=== PATIENT | female | born 1985 ===

== ENCOUNTER → 2022-05-09 | Outpatient (REF) | payer SELFPAY ==
[2022-05-09 18:18] LABS: HEMATOCRIT 46.5 % (36.0-47.0)
[2022-05-09 18:33] LABS: FERRITIN 194 NG/ML (8-252); IRON (FE) 68 UG/DL (50-170); PERCENT SATURATION 24.9 % (13.2-45.0); PHOSPHORUS LEVEL 2.8 MG/DL (2.5-4.9); TOTAL IRON BINDING CAPACITY 273 UG/DL (250-450)
[2022-05-09 19:23] LABS: VITAMIN B12 LEVEL > 2000 PG/ML (247-911)
== END ==
LOC: M LAB REF 16:53
PROVIDERS: ATTEND Family Medicine
DX: Z98.84 Bariatric surgery status (principal); D50.9 Iron deficiency anemia, unspecified